=== PATIENT | female | born 1940 | race African-American/Black ===

== ENCOUNTER 2021-06-20 22:32 | Emergency (ER) | payer SELFPAY ==
[~2021-06-20] VITALS: Ht 167.6 cm; Wt 77.0 kg
[2021-06-21] MEDS ORDERED: ACETAMINOPHEN 325MG TABLET PO ONE (00:30)
[2021-06-21] MEDS ORDERED: IBUPROFEN 400MG TABLET PO ONE (00:30)
[2021-06-21 01:50] VITALS: BP 147/80
== END 2021-06-21 01:56 | disposition home or self-care (01) ==
LOC: ER 22:32
DX: S82.251A Displaced comminuted fracture of shaft of right tibia, initial encounter for closed fracture (principal); S82.451A Displaced comminuted fracture of shaft of right fibula, initial encounter for closed fracture; I10 Essential (primary) hypertension; Z98.890 Other specified postprocedural states; W10.8XXA Fall (on) (from) other stairs and steps, initial encounter; Y93.89 Activity, other specified; Y92.018 Other place in single-family (private) house as the place of occurrence of the external cause
CPT/HCPCS: 29505; 73562; 99283